=== PATIENT | male | born 1955 | race Caucasian/White ===

== ENCOUNTER → 2021-06-12 | Outpatient (CLI) | payer OTHER ==
[~2021-06-12] VITALS: Ht 175.3 cm; Wt 73.5 kg
[~2021-06-12] MED LIST: CARVEDILOL12.5 MG PO; MELOXICAM15 MG PO
[2021-06-12 14:19] VITALS: BP 149/88
--- NOTE | 2021-06-12 14:52 | NUR ---
[facility] Assessment: 1. History of Osteoarthritis: Not Applicable History of Rheumatoid Arthritis: Not Applicable 2. Height: 5 ft. 9 in. 175.3 cm. Weight: 162.0 lb. oz. 73.483 kg. Patient's BMI: 23.9 3. Vital Signs: BP: 149/88 Pulse: 83 Resp: 16 Temp: 02 Sat: 100 ECG Mon: 4. Pain Intensity: 3 5. Fall Risk: Dizziness: N Needs help standing or walking: N Fallen in the last 3 months: N Fall risk comments: 6. Patient on Blood Thinner: None 7. History of Hypertension: Y 8. Opioid Therapy greater than 6 weeks: Opiate Contract Signed: 9. Risk Assessment Tool Provided: 0 LOW RISK 10. Functional Assessment Tool: 11. Recreational Drug Use: Never Drug Type: Tobacco Use: Former Smoker Tobacco Type: Amount or Packs/day: How Many Years: Alcohol Use: Yes Frequency: Daily Quant: 2
== END ==
LOC: PAIN 11:23
PROVIDERS: ATTEND Anesthesiology Pain Medicine
DX: M48.00 Spinal stenosis, site unspecified (principal); R51.9 Headache, unspecified; M50.30 Other cervical disc degeneration, unspecified cervical region; Z79.891 Long term (current) use of opiate analgesic; Z79.899 Other long term (current) drug therapy